=== PATIENT | female | born 1940 | race Caucasian/White ===

== ENCOUNTER 2017-06-07 10:40 | Outpatient (CLI) | payer MEDICARE ==
--- NOTE | 2017-06-07 14:38 | ULT ---
RENAL ULTRASOUND: Indication: Left parenchymal cyst follow up. Comparison: CT of the abdomen and pelvis, 11-23-16. FINDINGS: The lower pole left renal cyst measures 8.5 x 8.6 x 6 cm, slightly less prominent then measured on e CT examination where it measured 10.1 x 8.7 x 9.7 cm. No hydronephrosis is evident. There is a smal l cyst involving the right kidney seen within the mid to superior pole measuring 8 mm. The right kidney measured 9 x 4.4 x 4.4 cm. The left kidney measures 13.4 x 4.8 x 6.5 cm. Pre void bladder volume is 49. IMPRESSION: 1. Slight interval decrease in size of the large left inferior pole renal cyst. 2. Small 8 mm right mid to superior pole renal cyst. POS: [facility]
== END 2017-06-07 10:41 | disposition home or self-care (01) ==
LOC: ULT 10:40
PROVIDERS: ATTEND Urology
DX: N28.1 Cyst of kidney, acquired (principal)
CPT/HCPCS: 76770

== ENCOUNTER 2018-07-03 12:56 | Outpatient (CLI) | payer MEDICARE ==
--- NOTE | 2018-07-03 14:14 | ULT ---
BILATERAL RENAL ULTRASOUND: Date: 07/03/18 INDICATION: Renal cysts, microscopic hematuria. Reference made to 06/07/17 renal ultrasound. FINDINGS: There are several cysts occupying the kidneys bilaterally, more numerous on the left. Dominant left r enal cyst measures greater than 9.0 cm, as demonstrated, partially exophytic from the inferior left r enal cortical margin. There is an approximately 2.0 cm superior pole left renal cyst. Punctate cysts are also seen within each kidney which measured approximately 1.0 cm. There is no overt hydronephrosis. There is mild distention of the urinary bladder. IMPRESSION: Bilateral renal cysts are redemonstrated. Dominant cyst at the inferior pole of the left kidney has i ncreased in size, measuring between 9 and 10 cm in length. POS: [facility]
== END 2018-07-03 12:57 | disposition home or self-care (01) ==
LOC: BICULT 12:56
PROVIDERS: ATTEND Urology
DX: N28.1 Cyst of kidney, acquired (principal); R31.29 Other microscopic hematuria
CPT/HCPCS: 36415; 76770; 80048; 88112

== ENCOUNTER 2018-09-03 10:04 | Day surgery (SDC) | payer MEDICARE ==
[2018-08-31 12:31] VITALS: BMI 27.9
[2018-09-03 10:09] LABS: PTT 27.2 SEC (22.9-36.1)
[2018-09-03 10:50] LABS: Hemoglobin 14.2 g/dL (12.0-16.0); Mean Corpuscular HGB CONC 31.3 g/dL (32.0-36.0); Mean Corpuscular Hemoglobin 31.1 pg (27.0-31.0); Mean Corpuscular Volume 99.5 fL (78.0-98.0); Mean Platelet Volume 8.4 fL (7.4-10.4); Platelet Count 321 thou/uL (130-400); RBC Distribution Width 12.8 % (11.5-14.5); Red Blood Cell (RBC) Count 4.58 mill/uL (4.20-5.40); White Blood Cell (WBC) Count 8.7 thou/uL (4.8-10.8)
[2018-09-03] MEDS ORDERED: hydrALAZINE 20 MG/ML VIAL SLOW IVP SCH (11:15)
[2018-09-03] MEDS ORDERED: Fentanyl 100 MCG/2 ML VIAL ONE (11:19)
[2018-09-03] MEDS ORDERED: Lidocaine 1% PF 5 ML VIAL ONE (11:20)
[2018-09-03] MEDS ORDERED: Midazolam HCl 2 mg/2 ml Vial ONE (11:20)
[2018-09-03] MEDS ORDERED: Sodium Bicarbonate 2.5 MEQ/5 ML VIAL ONE (11:20)
[2018-09-03] MEDS ORDERED: Acetaminophen 500 MG TAB ONE (12:15)
[2018-09-03 12:56] VITALS: BP 170/80; TEMP 98.3
[2018-09-03 14:24] LABS: BF Color Colorless; BF RBC Count - Manual 28 /cumm; BF WBC/Nonhematics Ct. - Manua 2 /cumm; Clarity Clear (Clear); Tube # EDTA
--- NOTE | 2018-09-03 15:39 | ULT ---
ULTRASOUND GUIDED LEFT RENAL CYST ASPIRATION: INDICATION: Large left renal cyst with mass effect and pain. Ordering clinician requests cyst aspiration. PROCEDURE: Informed consent was obtained. The patient was escorted to the procedural suite. The patient was pl aced in a right lateral decubitus position. The renal cyst of interest was localized sonographically . After adequate approach was obtained, the skin and soft tissues were prepped and draped in standar d sterile fashion, topical anesthesia with buffered 1% Lidocaine was performed. Conscious sedation w as administered to the patient by the radiology nurse and was monitored accordingly in stable conditi on throughout the duration of the procedure. Subsequently, a 20-gauge needle was uneventfully advanced into the left renal cyst. Approximately 17 5 cc of clear cyst aspirate was removed from the cyst and the sample of the specimen was sent in a sy ringe to the laboratory for further analysis as requested. A small residua of the cyst remained upon completion of the procedure which was documented with sonographic imaging. Note is made that the cy st of interest, drained during the procedure, does have a mild degree of complexity with a component of small thin peripheral septation. IMPRESSION: Technically successful ultrasound-guided left renal cyst aspiration with near-complete resolution of cyst contents. The specimen was sent to the laboratory for further analysis and results are pending. The cyst which was drained does reveal a mild degree of internal complexity and, therefore, continued renal ultrasound surveillance should be obtained. Recommend initial followup scan (renal ultrasound ) in 3-4 months. POS: [facility]
== END 2018-09-03 13:20 | disposition home or self-care (01) ==
LOC: CT 10:04
PROVIDERS: ATTEND Radiology Diagnostic Radiology
PROC: 0T913ZZ Drainage of Left Kidney, Percutaneous Approach (ICD-10-PCS; principal; 2018-09-03)
DX: N28.1 Cyst of kidney, acquired (principal); I10 Essential (primary) hypertension; I73.9 Peripheral vascular disease, unspecified; E03.9 Hypothyroidism, unspecified; E78.5 Hyperlipidemia, unspecified; H40.20X0 Unspecified primary angle-closure glaucoma, stage unspecified; Z90.89 Acquired absence of other organs; Z90.711 Acquired absence of uterus with remaining cervical stump; Z87.891 Personal history of nicotine dependence; Z88.5 Allergy status to narcotic agent; Z88.2 Allergy status to sulfonamides; Z79.899 Other long term (current) drug therapy; Z98.890 Other specified postprocedural states
CPT/HCPCS: 36415; 76942; 85027; 85610; 85730; 87070; 87205; 89051; J0360; J2001; J2250; J3010

== ENCOUNTER 2018-09-04 10:45 | Emergency (ER) | payer MEDICARE ==
[2018-09-04 11:33] LABS: #Basophils 0.1 thou/uL (0.0-0.2); #Eosinphils 0.1 thou/uL (0.0-0.7); #Lymphocytes 1.9 thou/uL (1.20-3.40); #Monocytes 0.9 thou/uL (0.11-0.59); #Neutrophils 7.8 thou/uL (1.40-6.50); %Basophils 0.8 % (0.0-1.0); %Eosinophils 1.1 % (0.0-10.0); %Lymphocytes 17.8 % (21.0-51.0); %Monocytes 8.1 % (0.0-10.0); %Neutrophils 72.3 % (42.0-75.0); Hemoglobin 14.5 g/dL (12.0-16.0); Mean Corpuscular HGB CONC 31.6 g/dL (32.0-36.0); Mean Corpuscular Hemoglobin 31.4 pg (27.0-31.0); Mean Corpuscular Volume 99.6 fL (78.0-98.0); Platelet Count 328 thou/uL (130-400); RBC Distribution Width 12.8 % (11.5-14.5); White Blood Cell (WBC) Count 10.8 thou/uL (4.8-10.8)
[2018-09-04 11:53] LABS: ALT (SGPT) 18 U/L (8-55); AST (SGOT) 19 U/L (5-34); Albumin 4.1 g/dL (3.4-4.8); Alkaline Phosphatase 121 U/L (40-150); Anion Gap 14 mmol/L (10-20); BUN (Urea Nitrogen) 33 mg/dL (9.8-20.1); Bilirubin, Total 0.3 mg/dL (0.2-1.2); CK (CPK) 55 U/L (29-168); Calc. Creatinine Clearance 0 mL/min (70-130); Calcium 9.6 mg/dL (7.8-10.44); Carbon Dioxide 25 mmol/L (23-31); Chloride 105 mmol/L (98-107); Estimated GFR-MDRD 63; Globulin 3.4 g/dL (2.4-3.5); Glucose 102 mg/dL (83-110); Lipase 28 U/L (8-78); Protein, Total 7.5 g/dL (6.0-8.3); Sodium 140 mmol/L (136-145)
[2018-09-04] MEDS ORDERED: Ibuprofen 800 MG TAB ONE (12:28)
== END 2018-09-04 13:45 | disposition home or self-care (01) ==
LOC: ERS 10:45
DX: I10 Essential (primary) hypertension (principal); E03.9 Hypothyroidism, unspecified; Z87.891 Personal history of nicotine dependence; Z79.899 Other long term (current) drug therapy
CPT/HCPCS: 36415; 80053; 82550; 83690; 84484; 85025; 93005

== ENCOUNTER 2018-12-31 12:27 | Outpatient (CLI) | payer MEDICARE ==
--- NOTE | 2018-12-31 15:21 | ULT ---
COMPLETE BILATERAL RENAL ULTRASOUND: HISTORY: None. Bilateral renal cysts. FINDINGS: The right kidney measures 10 x 4.9 x 4.9 cm. The left kidney measures 9.2 x 4.2 x 4.8 cm. There is a 0.6 cm in diameter, nonshadowing, echogenic focus in the mid lateral right kidney. Multiple bilate ral renal cysts, the largest of which involves the lower pole of the left kidney, measuring 6.2 x 3.1 x 3.9 cm, is partially septated and has decreased in size when compared to the prior ultrasound exam ination from 07/03/2018, at which time it was 9 cm in size, but did have an intervening cyst aspirati on. Renal cortical echogenicity appears to be somewhat increased bilaterally, evidence for nonspecif ic chronic renal disease. No significant hydronephrosis. The urinary bladder is unremarkable. IMPRESSION: 1. Bilateral renal cysts, the largest on the left side decreased from the prior study of 07/03/2018, with an intervening left cyst aspiration. 2. A 0.6 cm in diameter, nonshadowing, echogenic focus in the right kidney. 3. No renal hydronephrosis. 4. Increased renal cortical echogenicity, evidence for nonspecific chronic renal disease. 5. Consider six month follow-up evaluation. POS: [facility]
== END 2018-12-31 12:28 | disposition home or self-care (01) ==
LOC: BICULT 12:27
PROVIDERS: ATTEND Urology
DX: N28.1 Cyst of kidney, acquired (principal); R93.421 Abnormal radiologic findings on diagnostic imaging of right kidney; N18.9 Chronic kidney disease, unspecified; R93.422 Abnormal radiologic findings on diagnostic imaging of left kidney
CPT/HCPCS: 76770

== ENCOUNTER 2019-07-24 12:39 | Outpatient (CLI) | payer MEDICARE ==
--- NOTE | 2019-07-24 14:14 | ULT ---
BILATERAL RENAL ULTRASOUND COMPLETE: Date: 07/24/2019 HISTORY: Follow-up renal cyst. FINDINGS: Right kidney measures 9.5 x 4.6 x 5.6 cm. Right renal cyst measures up to 1.3 cm. Left kidney measures 11.5 x 5.9 x 4.5 cm. The largest cyst on the left side measures 3.4 x 6.2 x 7.0 cm. The echogenic focus in the right kidney shown on the prior study is not redemonstrated on today's aiden dy. There is some increased echogenicity within the right renal cortex, evidence for nonspecific art supervisor feli renal disease. No hydronephrosis. IMPRESSION: Multiple bilateral renal cysts showing little change from prior study. No renal hydronephrosis. Some increased cortical echogenicity, particularly of the right kidney, evidence for nonspecific chronic r enal disease. POS: [facility]
== END 2019-07-24 12:40 | disposition home or self-care (01) ==
LOC: BICULT 12:39
PROVIDERS: ATTEND Urology
DX: N28.1 Cyst of kidney, acquired (principal); R93.421 Abnormal radiologic findings on diagnostic imaging of right kidney; N18.9 Chronic kidney disease, unspecified
CPT/HCPCS: 76770